=== PATIENT | female | born 1965 | race Caucasian/White ===

== ENCOUNTER → 2017-01-10 | Outpatient (CLI) | payer BC ==
--- NOTE | 2017-01-10 14:38 | MM ---
Reason for exam: screening (asymptomatic). Last mammogram was performed 1 year ago. History: Patient is postmenopausal. Took hormonal contraceptives for 2 years beginning at age 16. Physical Findings: A clinical breast exam by your physician is recommended on an annual basis and results should be correlated with mammographic findings. MG Screening Mammo w CAD Bilateral CC and MLO view(s) were taken. Prior study comparison: January 05, 2016, bilateral MG screening mammo w CAD. December 20, 2014, bilateral MG screening mammo w CAD. There are scattered fibroglandular densities. There is no discrete abnormality. No significant changes when compared with prior studies. ASSESSMENT: Negative, BI-RAD 1 RECOMMENDATION: Routine screening mammogram of both breasts in 1 year.
== END | disposition home or self-care (01) ==
LOC: RADMAMWWP 06:57
PROVIDERS: ATTEND Obstetrics & Gynecology
DX: Z12.31 Encounter for screening mammogram for malignant neoplasm of breast (principal)

== ENCOUNTER → 2018-02-25 | Outpatient (CLI) | payer BC ==
--- NOTE | 2018-02-27 07:27 | MM ---
Reason for exam: screening (asymptomatic). Last mammogram was performed 1 year and 1 month ago. History: Patient is postmenopausal. Took hormonal contraceptives for 2 years beginning at age 16. Physical Findings: A clinical breast exam by your physician is recommended on an annual basis and results should be correlated with mammographic findings. MG Screening Mammo w CAD Bilateral CC and MLO view(s) were taken. XCCL view(s) were taken of the right breast. Prior study comparison: January 10, 2017, bilateral MG screening mammo w CAD. January 05, 2016, bilateral MG screening mammo w CAD. There are scattered fibroglandular densities. No significant changes when compared with prior studies. ASSESSMENT: Negative, BI-RAD 1 RECOMMENDATION: Routine screening mammogram of both breasts in 1 year.
== END | disposition home or self-care (01) ==
LOC: RADMAMWWP 11:22
PROVIDERS: ATTEND Obstetrics & Gynecology
DX: Z12.31 Encounter for screening mammogram for malignant neoplasm of breast (principal)
CPT/HCPCS: 77067

== ENCOUNTER → 2019-02-26 | Outpatient (CLI) | payer OTHER ==
--- NOTE | 2019-03-01 10:52 | MM ---
Reason for exam: screening (asymptomatic). Last mammogram was performed 1 year ago. History: Patient is postmenopausal. Took hormonal contraceptives for 2 years beginning at age 16. Physical Findings: A clinical breast exam by your physician is recommended on an annual basis and results should be correlated with mammographic findings. MG Screening Mammo w CAD Bilateral CC and MLO view(s) were taken. Prior study comparison: February 25, 2018, bilateral MG screening mammo w CAD. January 10, 2017, bilateral MG screening mammo w CAD. There are scattered fibroglandular densities. Benign appearing calcifications in the left breast, stable. There is chronic nodularity in the left breast. No significant changes when compared with prior studies. ASSESSMENT: Benign, BI-RAD 2 RECOMMENDATION: Routine screening mammogram of both breasts in 1 year.
== END | disposition home or self-care (01) ==
LOC: RADMAMWWP 06:57
DX: Z12.31 Encounter for screening mammogram for malignant neoplasm of breast (principal)
CPT/HCPCS: 77067

== ENCOUNTER 2020-02-26 14:12 | Emergency (ER) | payer OTHER ==
[2020-02-26 14:20] VITALS: BP 102/85; PULSE 90; RESP 18; TEMP 97.5
[2020-02-26] MEDS ORDERED: DIPH,PERTUS(ACELL)TETVAC-LF 0.5 ML VIAL IM ONE (14:28)
[2020-02-26] MEDS ORDERED: KETOROLAC 30 MG/ML 1 ML VIAL IM STA (14:32)
--- NOTE | 2020-02-26 14:34 | ED ---
General Adult HPI - General Chief complaint: Fall Stated complaint: Fall Time Seen by Provider: 02/26/20 14:20 Source: patient, RN notes reviewed Mode of arrival: ambulatory Limitations: no limitations - History of Present Illness Initial comments: 54 year old female presents to the emergency department for a chief complaint of fall. Patient states she was "door knocking" for her son when she tripped and fell. Patient states she broke her fall with her left arm and now she has significant left shoulder pain. States it is very painful to move her left shoulder. Patient did also break her left front upper tooth. She has a scrape on her nose but no pain on her nose. She did not hit her head. She does not take blood thinners. She does not have neck pain.Patient has no other complaints at this time including shortness of breath, chest pain, abdominal pain, nausea or vomiting, headache, or visual changes. - Related Data Previous Rx's Medication Instructions Recorded Ketorolac [Toradol] 10 mg PO Q8H 3 Days #9 tab 02/26/20 Allergies Allergy/AdvReac Type Severity Reaction Status Date / Time No Known Allergies Allergy Verified 02/26/20 14:20 Review of Systems ROS Statement: Those systems with pertinent positive or pertinent negative responses have been documented in the HPI. ROS Other: All systems not noted in ROS Statement are negative. Past Medical History Past Medical History: No Reported History History of Any Multi-Drug Resistant Organisms: None Reported Past Surgical History: Uterine Ablation Past Psychological History: No Psychological Hx Reported Smoking Status: Never smoker Past Alcohol Use History: Daily Past Drug Use History: None Reported General Exam Limitations: no limitations General appearance: alert, in no apparent distress Head exam: Present: atraumatic, normocephalic, normal inspection Eye exam: Present: normal appearance, PERRL, EOMI. Absent: scleral icterus, conjunctival injection, periorbital swelling ENT exam: Present: normal exam, mucous membranes moist, TM's normal bilaterally, normal external ear exam, other (No septal hematoma. Slight abrasion noted to the bridge of the nose however no tenderness.). Absent: normal oropharynx (Patient has a fractured left front tooth. No tenderness along the maxillary ar ea or other facial bones.) Neck exam: Present: normal inspection, full ROM. Absent: tenderness, meningismus, lymphadenopathy Respiratory exam: Present: normal lung sounds bilaterally. Absent: respiratory distress, wheezes, rales, rhonchi, stridor Cardiovascular Exam: Present: regular rate, normal rhythm, normal heart sounds. Absent: systolic murmur, diastolic murmur, rubs, gallop, clicks GI/Abdominal exam: Present: soft, normal bowel sounds. Absent: distended, tenderness, guarding, rebound, rigid Extremities exam: Present: tenderness (Tenderness to the proximal left humerus.), normal capillary refill (Capillary refill less than 2 seconds, radial pulse 2+ left upper extremity), other (Sensation intact to left upper extremity. Patient able to make okay sign flex and extend wrist and abduct and adduct fingers of L hand). Absent: full ROM (Patient unable to move the left shoulder secondary to pain.), pedal edema, joint swelling, calf tenderness Course Vital Signs 02/26/20 14:14 Temperature 97.5 F L Pulse Rate 90 Respiratory 18 Rate Blood Pressure 102/85 O2 Sat by Pulse 96 Oximetry Medical Decision Making - Medical Decision Making X-ray of the left humerus shows a comminuted humeral neck fracture. Neurovascular status intact in the left upper extremity. Patient was placed in a sling. Dr. Carver reviewed the films. She will follow-up with him in the office. She will follow-up with her dentist for a fractured tooth. She will return here for any worsening symptoms. Patient does not any narcotic pain medication, was given Toradol. Disposition Clinical Impression: Fracture of neck of humerus Disposition: HOME SELF-CARE Condition: Good Instructions (If sedation given, give patient instructions): Proximal Humerus Fracture (ED) Additional Instructions: Take Toradol for pain. Do not take Motrin. You may take 2 extra strength Tylenol every 6 hours in addition to the Toradol. Please use sling when walking around. Otherwise follow-up with orthopedics by calling Friday for an appointment. Return here to the emergency room for any worsening symptoms. Prescriptions: Ketorolac [Toradol] 10 mg PO Q8H 3 Days #9 tab Is patient prescribed a controlled substance at d/c from ED?: No Referrals: Jasson Sanchez MD [Primary Care Provider] - 1-2 days Fidel Carver DO [Medical Doctor] - 1-2 days Time of Disposition: 15:32
--- NOTE | 2020-02-26 15:04 | XR ---
EXAMINATION TYPE: XR shoulder complete LT DATE OF EXAM: 02/26/2020 COMPARISON: NONE HISTORY: Fall. Pain. TECHNIQUE: 3 views. There is comminuted slightly impacted humeral neck fracture. There is displacement of the fragments up to 1.7 cm. There is large chip fracture of the greater tuberosity. There is no dislocation. IMPRESSION: Comminuted fracture of the humeral neck. No dislocation.
--- NOTE | 2020-02-26 15:05 | XR ---
EXAMINATION TYPE: XR humerus LT DATE OF EXAM: 02/26/2020 COMPARISON: NONE HISTORY: Fall. Pain TECHNIQUE: 2 views FINDINGS: There is impacted comminuted humeral neck fracture. There is no dislocation. The elbow join t appears anatomic. IMPRESSION: Comminuted humeral neck fracture.
== END 2020-02-26 15:45 | disposition home or self-care (01) ==
LOC: EC 14:12
DX: S42.212A Unspecified displaced fracture of surgical neck of left humerus, initial encounter for closed fracture (principal); Z23 Encounter for immunization; W01.0XXA Fall on same level from slipping, tripping and stumbling without subsequent striking against object, initial encounter
CPT/HCPCS: 73030; 73060; 90715; 99283; 90471; 96372; J1885

== ENCOUNTER → 2020-09-04 | Outpatient (CLI) | payer OTHER ==
--- NOTE | 2020-09-06 14:27 | MM ---
Reason for exam: screening (asymptomatic). Last mammogram was performed 1 year and 6 months ago. History: Patient is postmenopausal. Took hormonal contraceptives for 2 years beginning at age 16. Physical Findings: A clinical breast exam by your physician is recommended on an annual basis and results should be correlated with mammographic findings. MG Screening Mammo w CAD Bilateral CC and MLO view(s) were taken. Prior study comparison: February 26, 2019, bilateral MG screening mammo w CAD. February 25, 2018, bilateral MG screening mammo w CAD. There are scattered fibroglandular densities. No significant changes when compared with prior studies. ASSESSMENT: Negative, BI-RAD 1 RECOMMENDATION: Routine screening mammogram of both breasts in 1 year.
== END | disposition home or self-care (01) ==
LOC: RADMAMWWP 07:29
PROVIDERS: ATTEND Obstetrics & Gynecology
DX: Z12.31 Encounter for screening mammogram for malignant neoplasm of breast (principal)
CPT/HCPCS: 77067

== ENCOUNTER → 2021-12-11 | Outpatient (CLI) | payer OTHER ==
--- NOTE | 2021-12-12 15:08 | MM ---
Reason for exam: screening (asymptomatic). Last mammogram was performed 1 year and 3 months ago. History: Patient is postmenopausal. Took hormonal contraceptives for 2 years beginning at age 16. Physical Findings: A clinical breast exam by your physician is recommended on an annual basis and results should be correlated with mammographic findings. MG Screening Mammo w CAD Bilateral CC and MLO view(s) were taken. Prior study comparison: September 04, 2020, bilateral MG screening mammo w CAD. February 26, 2019, bilateral MG screening mammo w CAD. There are scattered fibroglandular densities. There is no discrete abnormality. No significant changes when compared with prior studies. ASSESSMENT: Negative, BI-RAD 1 RECOMMENDATION: Routine screening mammogram of both breasts in 1 year.
== END | disposition home or self-care (01) ==
LOC: RADMAMWWP 08:30
PROVIDERS: ATTEND Obstetrics & Gynecology
DX: Z12.31 Encounter for screening mammogram for malignant neoplasm of breast (principal); Z78.0 Asymptomatic menopausal state
CPT/HCPCS: 77067

== ENCOUNTER → 2022-04-15 | Outpatient (CLI) | payer OTHER ==
--- NOTE | 2022-04-15 21:29 | MR ---
EXAMINATION TYPE: MR knee LT wo con DATE OF EXAM: 04/15/2022 COMPARISON: None. HISTORY: Left knee pain and effusion. TECHNIQUE: Multiplanar, multisequence imaging of the left knee is performed without IV contrast. FINDINGS: MEDIAL MENISCUS: Medial bulging medial meniscus on coronal images. Increased central signal posterior horn medial meniscus does not extend to articular surface. LATERAL MENISCUS: Anterior and posterior horns are intact without tear. CRUCIATE LIGAMENTS: The anterior and posterior cruciate ligaments are intact and unremarkable. COLLATERAL LIGAMENTS: The medial collateral ligament and lateral collateral ligament complex are inta ct and unremarkable. EXTENSOR MECHANISM: Visualized quadriceps and patellar tendons are intact. EFFUSION: No significant suprapatellar joint effusion. POPLITEAL CYST: Large multi septated popliteal/delacruz cyst with inferior 1.2 cm T1 and T2 low intense round lesion presumed ossific density sagittal image 25. TRICOMPARTMENT SPACES: Severe narrowing patellofemoral compartment with mild to moderate spurring. Mi ld to moderate narrowing thinning and mild spurring medial and lateral tibiofemoral compartments. CARTILAGE: Significant chondromalacia patella with areas of full-thickness loss seen. Tricompartment cartilaginous loss is present. BONE MARROW SIGNAL: Areas of Heterogeneous diminished T1 and increased T2 signal posterior patellar p ole. OTHER: No additional significant abnormality is appreciated. IMPRESSION: 1. Severe patellofemoral joint arthropathy as detailed above. 2. Large multiseptated popliteal cyst. 3. Intrasubstance tear posterior horn medial meniscus.
== END | disposition home or self-care (01) ==
LOC: RADMRIMAIN 19:43
PROVIDERS: ATTEND Orthopaedic Surgery Sports Medicine
DX: M17.12 Unilateral primary osteoarthritis, left knee (principal); M23.322 Other meniscus derangements, posterior horn of medial meniscus, left knee; M25.462 Effusion, left knee; M71.22 Synovial cyst of popliteal space [Baker], left knee

== ENCOUNTER 2022-07-20 10:50 | Emergency (ER) | payer OTHER ==
[2022-07-20 11:00] VITALS: BP 154/94; PULSE 79; RESP 18; TEMP 97.5
[2022-07-20] MEDS ORDERED: LIDOCAINE 1% INJ 10MG/ML (30 ML VIAL-PF) SQ ONE (11:09)
[2022-07-20] MEDS ORDERED: DIPH,PERTUS(ACELL)TETVAC-LF 0.5 ML VIAL IM ONE (11:11)
--- NOTE | 2022-07-20 11:27 | ED ---
Wound/Laceration HPI - General Chief Complaint: Wound/Laceration Stated Complaint: lt hand lac Time Seen by Provider: 07/20/22 11:09 Source: patient Mode of arrival: ambulatory Limitations: no limitations - History of Present Illness Initial Comments: Patient is a 57-year-old female presenting with laceration. Patient cut her left pointer finger on glass. Reports minimal pain. Denies numbness and tingling. Last tetanus unknown. - Related Data Previous Rx's Medication Instructions Recorded Ketorolac [Toradol] 10 mg PO Q8H 3 Days #9 tab 02/26/20 Allergies Allergy/AdvReac Type Severity Reaction Status Date / Time No Known Allergies Allergy Verified 07/20/22 11:00 Review of Systems ROS Statement: Those systems with pertinent positive or pertinent negative responses have been documented in the HPI. ROS Other: All systems not noted in ROS Statement are negative. Past Medical History Past Medical History: No Reported History, CVA/TIA History of Any Multi-Drug Resistant Organisms: None Reported Past Surgical History: Uterine Ablation Past Psychological History: No Psychological Hx Reported Smoking Status: Never smoker Past Alcohol Use History: Daily Past Drug Use History: None Reported General Exam Limitations: no limitations General appearance: alert, in no apparent distress Respiratory exam: Present: normal lung sounds bilaterally. Absent: respiratory distress, wheezes, rales, rhonchi, stridor Cardiovascular Exam: Present: regular rate, normal rhythm, normal heart sounds. Absent: systolic murmur, diastolic murmur, rubs, gallop, clicks Neurological exam: Present: alert, oriented X3, CN II-XII intact Psychiatric exam: Present: normal affect, normal mood Skin exam: Present: warm, dry, intact, normal color, other (2 cm horizontal laceration over the palmar aspect of left pointer finger at metacarpophalangeal joint). Absent: rash Course Vital Signs 07/20/22 10:55 Temperature 97.5 F L Pulse Rate 79 Respiratory 18 Rate Blood Pressure 154/94 O2 Sat by Pulse 99 Oximetry Procedures - Laceration Laceration #1 Consent Obtained: verbal consent Indication: laceration Site: other (left pointer finger) Description: linear Depth: simple, single layer Anesthetic Used: lidocaine 1% Anesthesia Technique: local infiltration Pre-repair: wound explored, irrigated extensively Type of Sutures: nylon Size of Sutures: 5-0 Number of Sutures: 4 Technique: simple, interrupted Patient Tolerated Procedure: well, no complications Medical Decision Making - Medical Decision Making This is a 57-year-old female presenting laceration. Laceration was irrigated and approximated with 4 sutures. Tetanus updated. Wound care education provided in detail. Dr. Moran is my attending. Disposition Clinical Impression: Laceration Disposition: HOME SELF-CARE Condition: Good Instructions (If sedation given, give patient instructions): Care For Your Stitches (ED), Laceration (ED) Additional Instructions: Leave wound uncovered. Keep wound clean and dry. Wash with a mild soap. Take Tylenol or anti-inflammatories such as Motrin for pain. Follow-up with primary care provider in 1-2 days. Return for suture removal in 7-10 days. Report back to the emergency department if you experience new, concerning, or worsening symptoms. Is patient prescribed a controlled substance at d/c from ED?: No Referrals: Jasson Sanchez MD [Primary Care Provider] - 1-2 days Time of Disposition: 11:26
== END 2022-07-20 11:56 | disposition home or self-care (01) ==
LOC: EC 10:50
DX: S61.211A Laceration without foreign body of left index finger without damage to nail, initial encounter (principal); G45.9 Transient cerebral ischemic attack, unspecified; W26.9XXA Contact with unspecified sharp object(s), initial encounter; Z23 Encounter for immunization
CPT/HCPCS: 99282; 90471; 12001; 90715; J2001

== ENCOUNTER → 2023-02-06 | Outpatient (CLI) | payer OTHER ==
--- NOTE | 2023-02-07 07:14 | MM ---
Reason for Exam: Screening (asymptomatic). Last mammogram was performed 1 year(s) and 2 month(s) ago. Patient History: Menarche at age 10. First Full-Term at age 22. Postmenopausal. Hormonal Contraceptives for 2 years from age 16 until age 18. Risk Values: Mercy 5 year model risk: 1.2%. NCI Lifetime model risk: 6.7%. Prior Study Comparison: 02/26/2019 Bilateral Screening Mammogram, [facility]. 09/04/2020 Bilateral Screening Mammogram, [facility]. 12/11/2021 Bilateral Screening Mammogram, [facility]. Tissue Density: The breast tissue is almost entirely fat. Findings: Analyzed By CAD. There is no suspicious group of microcalcifications or new suspicious mass in either breast. Overall Assessment: Negative, BI-RAD 1 Management: Screening Mammogram of both breasts in [address] [facility] will attempt to contact patient to return for supplemental views and ultrasound if indicated. Patient should continue monthly self-breast exams. A clinical breast exam by your physician is recommended on an annual basis. This exam should not preclude additional follow-up of suspicious palpable abnormalities. Note on Mercy scores and lifetime risk: 1. A Mercy score greater than 3% is considered moderate risk. If this is the case, consider specialist referral to assess eligibility for a risk reducing agent. 2. If overall lifetime risk for the development of breast cancer is 20% or higher, the patient may qualify for future screening with alternating mammogram and breast MRI. Electronically signed and approved by: Ghassan Lake DO
== END | disposition home or self-care (01) ==
LOC: RADMAMWWP 07:39
PROVIDERS: ATTEND Obstetrics & Gynecology
DX: Z12.31 Encounter for screening mammogram for malignant neoplasm of breast (principal); Z78.0 Asymptomatic menopausal state
CPT/HCPCS: 77067

== ENCOUNTER → 2024-02-11 | Outpatient (CLI) | payer OTHER ==
--- NOTE | 2024-02-12 09:22 | MM ---
Reason for Exam: Screening (asymptomatic). Last screening mammogram was performed 12 month(s) ago. Patient History: Menarche at age 10. First Full-Term at age 22. Postmenopausal. Hormonal Contraceptives for 2 years from age 16 until age 18. Risk Values: Mercy 5 year model risk: 1.3%. NCI Lifetime model risk: 6.6%. Prior Study Comparison: 09/04/2020 Bilateral Screening Mammogram, [facility]. 12/11/2021 Bilateral Screening Mammogram, [facility]. 02/06/2023 Bilateral MG screening mammo w CAD, [facility]. Tissue Density: There are scattered areas of fibroglandular density. Findings: Analyzed By CAD. There is no suspicious group of microcalcifications or new suspicious mass in either breast. Overall Assessment: Negative, BI-RAD 1 Management: Screening Mammogram of both breasts in 1 year. . Patient should continue monthly self-breast exams. A clinical breast exam by your physician is recommended on an annual basis. This exam should not preclude additional follow-up of suspicious palpable abnormalities. Note on Mercy scores and lifetime risk: 1. A Mercy score greater than 3% is considered moderate risk. If this is the case, consider specialist referral to assess eligibility for a risk reducing agent. 2. If overall lifetime risk for the development of breast cancer is 20% or higher, the patient may qualify for future screening with alternating mammogram and breast MRI. Electronically signed and approved by: Miguel Hill M.D. Radiologis
== END | disposition home or self-care (01) ==
LOC: RADMAMWWP 07:08
PROVIDERS: ATTEND Obstetrics & Gynecology
DX: Z12.31 Encounter for screening mammogram for malignant neoplasm of breast (principal); Z78.0 Asymptomatic menopausal state
CPT/HCPCS: 77067

== ENCOUNTER → 2024-11-27 | Outpatient (CLI) | payer OTHER ==
--- NOTE | 2024-11-27 08:07 | MR ---
EXAMINATION TYPE: MR knee RT wo con DATE OF EXAM: 11/27/2024 7:52 AM COMPARISON: None. CLINICAL INDICATION: Female, 59 years old with history of M23.303 MENISCUS DERANGEMENTS, UNSP MEDIAL MENISCU, RT knee pain and swelling x2 months, Walking and knee locked up IV Contrast: cc (None if empty) TECHNIQUE: Multiplanar, multisequence imaging of the knee is performed without IV contrast. FINDINGS: There is no bone contusion or fracture. There is a tiny joint effusion. There is a large septated Delgado's cyst measuring 7.1 x 1.3 x 1.7 cm. There is tricompartment osteoarthritis severe in the patellofemoral compartment where there is marked thinning of the articular cartilage and [id number] configuration with subchondral cysts in the fem oral condyle and patella. There is moderate osteophytosis of the medial compartment where there is mo derate thinning of the articular cartilage and hypertrophic spurring. There is mild osteophytosis in the lateral compartment with a cartilage is fairly well preserved but there is hypertrophic spurring laterally. There is a complex tear of the body in the posterior horn of the medial meniscus. The lateral meniscu s is intact. The cruciate and collateral ligaments are intact. The quadriceps and patellar tendons are normal. The anterior fat pads are normal. IMPRESSION: 1. Tear of the body and posterior horn of the medial meniscus. 2. Tricompartment osteoarthritis, severe in the patellofemoral compartment, moderate in the medial co mpartment and mild in the lateral compartment. 3. Large septated Delgado cyst described above [facility], , 11/27/2024 8:05 AM
== END | disposition home or self-care (01) ==
LOC: RADMRIMAIN 07:21
PROVIDERS: ATTEND Orthopaedic Surgery Sports Medicine
DX: M23.331 Other meniscus derangements, other medial meniscus, right knee (principal); M17.11 Unilateral primary osteoarthritis, right knee; M71.21 Synovial cyst of popliteal space [Baker], right knee

== ENCOUNTER → 2025-03-02 | Outpatient (CLI) | payer OTHER ==
--- NOTE | 2025-03-02 08:36 | MM ---
Reason for Exam: Screening (asymptomatic). Last mammogram was performed 1 year(s) and 1 month(s) ago. Patient History: Menarche at age 10. First Full-Term at age 22. Postmenopausal. Hormonal Contraceptives for 2 years from age 16 until age 18. Risk Values: Mercy 5 year model risk: 1.3%. NCI Lifetime model risk: 6.4%. Prior Study Comparison: 12/11/2021 Bilateral Screening Mammogram, [facility]. 02/06/2023 Bilateral MG screening mammo w CAD, [facility]. 02/11/2024 Bilateral MG screening mammo w CAD, [facility]. Tissue Density: There are scattered areas of fibroglandular density. Findings: Analyzed By CAD. Central outer asymmetric densities on either side middle depth remain unchanged when compared to the 2020 prior. There is no suspicious group of microcalcifications or new suspicious mass in either breast. Overall Assessment: Benign, BI-RAD 2 Management: Screening Mammogram of both breasts in 1 year. Patient should continue monthly self-breast exams. A clinical breast exam by your physician is recommended on an annual basis. This exam should not preclude additional follow-up of suspicious palpable abnormalities. Note on Mercy scores and lifetime risk: 1. A Mercy score greater than 3% is considered moderate risk. If this is the case, consider specialist referral to assess eligibility for a risk reducing agent. 2. If overall lifetime risk for the development of breast cancer is 20% or higher, the patient may qualify for future screening with alternating mammogram and breast MRI. [facility], , 03/02/2025 8:33 AM. Electronically signed and approved by: Jorge Dailey M.D. Radiologist
== END | disposition home or self-care (01) ==
LOC: RADMAMWWP 06:51
PROVIDERS: ATTEND Obstetrics & Gynecology
DX: Z12.31 Encounter for screening mammogram for malignant neoplasm of breast (principal); R92.323 Mammographic fibroglandular density, bilateral breasts; Z78.0 Asymptomatic menopausal state; Z92.0 Personal history of contraception
CPT/HCPCS: 77067